=== PATIENT | male | born 1935 | race Caucasian/White ===

== ENCOUNTER → 2016-09-17 | Outpatient (CLI) | payer MEDICARE ==
--- NOTE | ~2016-09-17 | ESTC ---
Cardiac Perfusion Imaging Demographics Patient Name CARLTON Stanton Gender Male Patient Number [id number] Race Visit Number [id number] Ethnicity Corporate ID Room Number Accession Number [id number] Height 71 inches Date of 1935 Weight 235 pounds Interpreting Physician Zakiya Rice Date of study 09/17/2016 MD Supervising /MARY Rice NM Technologist Edel Nieto MD Ordering Physician Sandy Carlson Stress occupational therapy technician Stress ECG Reading Zakiya Rice Nurse Gutierrez Perez Physician Procedure Admit Source:Other. Procedure Type: Nuclear Stress Test:Cardiolite Stress Test Procedure Start time: 09/17/2016 09:20 Indications: Chest pain. Risk Factors The patient risk factors include:prior PCI on 04/01/1979;obesity, former tobacco use, hypertension, family history of premature CAD, insulin treated diabetes mellitus, chronic lung disease, dyslipidemia and prior heart failure . Conclusions Impression ECG portion of the lexiscan stress test is clinically negative for ischemia by diagnostic criteria. Myocardial perfusion imaging is moderately abnormal. The images reveal a mostly fixed defect in the entire inferior wall slightly worse at peak stress, consistent with reynaldo-infarct ischemia . Overall left ventricular systolic function was normal. Calculated LVEF is 54%. TID ratio is 0.99. This is a intermediate risk stress test. There are no previous studies for comparison . Stress Protocols Resting ECG NSR Resting HR:75 bpm Resting BP:175/80 mmHg Pre-stress physical exam: clear lungs s1 s2, rrr Peak HR:78 bpm HR/BP product:76001 Peak BP:142/67 mmHg Predicted HR: 141 bpm % of predicted HR: 55 ECG Findings NSR Arrhythmias No rhythm abnormality. Symptoms No symptoms with Lexiscan infusion. Stress Interpretation Appropriate hemodynamic response to Lexiscan. No significant ST-T wave changes with Lexiscan. ECG portion is negative for ischemia by diagnostic criteria. Imaging Results Applied corrections - Motion correction applied Summed scores - Summed stress score: 17 - Summed rest score: 8 - Summed difference score: 9 Stress ejection Ejection fraction:54 % EDV :105 ml ESV :48 ml Stroke volume :57 ml LV mass :133 gr Imaging Protocols Rest Stress Isotope:Tc99m Sestamibi IV Isotope: Tc99m Sestamibi IV Isotope dose:14.5 mCi Isotope dose:44.7 mCi Date:09/17/2016 08:13 Date:09/17/2016 09:42 Technique: SPECT Technique: Gated Supine SPECT Supine Scan Time:45-60 minutes post Scan Time:45-60 minutes post injection injection Procedure Medications - Regadenoson (Lexiscan) 0.4 mg IV over 10-15 sec. I.V. . - Regadenoson (Lexiscan) 0.4 mg IV over 10-15 sec. . Medical History Admission Data Admission date: 09/17/2016 Admission Time: 07:43 Hospital Status: Outpatient. Signatures dtt: PLACIDO CORDOVA dtd: 09/17/16 0920 Physician Self Edit
== END | disposition disaster alternative care site (69) ==
LOC: GRAD 07:30
DX: I20.8 Other forms of angina pectoris (principal); I25.10 Atherosclerotic heart disease of native coronary artery without angina pectoris; I10 Essential (primary) hypertension; E11.9 Type 2 diabetes mellitus without complications; J44.9 Chronic obstructive pulmonary disease, unspecified; E66.9 Obesity, unspecified; E78.5 Hyperlipidemia, unspecified; K72.90 Hepatic failure, unspecified without coma; J98.4 Other disorders of lung; Z82.49 Family history of ischemic heart disease and other diseases of the circulatory system; Z87.891 Personal history of nicotine dependence
CPT/HCPCS: A9500; J2785